=== PATIENT | male | born 1945 | race Native Hawaiian/Other Pacific Islander ===

== ENCOUNTER 2018-06-25 17:20 | Emergency (ER) | payer OTHER ==
[~2018-06-25] VITALS: Ht 182.9 cm; Wt 104.8 kg
[2018-06-25 17:49] LABS: PLATELET COUNT 320 K/uL (142-355)
[2018-06-25 17:56] LABS: POTASSIUM 4.8 mmol/L (3.6-5.2)
[2018-06-25 18:40] VITALS: BP 151/83; TEMP 98
[2018-06-25] MEDS ORDERED: ALLO100T22 PO (19:15)
[2018-06-25] MEDS ORDERED: GLIP10TA55 PO (19:18)
[2018-06-25] MEDS ORDERED: LISI10TA11 PO (19:19)
[2018-06-25] MEDS ORDERED: OMEPRAZOLE DR40 MG PO (19:20)
[2018-06-25] MEDS ORDERED: MULTI VITAMIN1 TAB PO (19:21)
[2018-06-25] MEDS ORDERED: FERROUS SULF324 MG PO (19:23)
[2018-06-25] MEDS ORDERED: METO-837 PO (19:23)
[2018-06-25] MEDS ORDERED: METO25TA4 PO ×2 (19:25→19:28)
[2018-06-25] MEDS ORDERED: FERROUS SULF325 MG PO (19:27)
[2018-06-25] MEDS ORDERED: ASPIRIN 81 LOW81 MG PO (19:29)
[2018-06-25] MEDS ORDERED: LIPITOR20 MG PO (19:30)
[2018-06-25] MEDS ORDERED: IBU800 MG PO (19:32)
[2018-06-25] MEDS ORDERED: MELATONIN3 MG PO (19:33)
[2018-06-25] MEDS ORDERED: TIZANIDINE HYDRO4 MG PO (19:34)
[2018-06-25] MEDS ORDERED: MAGNSUS68 PO (19:35)
== END 2018-06-25 18:40 | disposition other institution (70) ==
LOC: ED 17:35
PROVIDERS: Family Medicine
DX: Z00.8 Encounter for other general examination (principal); F91.8 Other conduct disorders; F25.8 Other schizoaffective disorders
CPT/HCPCS: 36415; 80053; 81000; 85027; 93005; 99285